=== PATIENT | female | born 1940 | race Caucasian/White ===

== ENCOUNTER → 2016-07-16 | Outpatient (CLI) | payer MEDICARE, BC ==
[~2016-07-16] MED LIST: BONIVA PO; CA C1TAB15 PO; CHOL100017 PO; CITA-50 PO; FISH1CAP59 PO; MULT-806 PO; PRAV40TA46 PO
[2016-07-16 10:59] LABS: HCT - HEMATOCRIT 46.4 % (36-46); HGB - HEMOGLOBIN 15.5 GM/DL (12-16); MEAN CORPUSCULAR HGB 29.8 UUG (26-34); MEAN CORPUSCULAR HGB CONC(MCHC 33.4 GM/DL (31-37); MEAN CORPUSCULAR VOLUME 89.2 UM3 (80-100); MEAN PLATELET VOLUME 10.1 UM3 (9.4-12.4); WBC - WHITE BLOOD COUNT 6.5 T/MM3 (4.5-11.0)
[2016-07-16 11:08] LABS: ALBUMIN 4.3 G/DL (3.5-5.0); ALBUMIN/GLOBULIN RATIO 1.5 RATIO (1.1-2.2); ALKALINE PHOSPHATASE 103 U/L (38-126); ALT (SGPT) 27 U/L (9-52); ANION GAP 8 MEQ/L (5-15); AST (SGOT) 28 U/L (14-36); BUN/CREATININE RATIO 22 RATIO (6-26); CALCIUM 9.8 MG/DL (8.4-10.2); CHLORIDE 106 MEQ/L (98-107); CO2 - CARBON DIOXIDE 28 MEQ/L (22-30); CREATININE 0.5 MG/DL (0.7-1.2); GLOMERULAR FILTRATION RATE 120; GLUCOSE 109 MG/DL (65-110); POTASSIUM 4.6 MEQ/L (3.6-5); SODIUM 142 MEQ/L (134-144); TOTAL PROTEIN 7.1 G/DL (6.3-8.2)
[2016-07-16 11:31] LABS: BAND NEUTROPHILS # 0.1 T/MM3; EOSINOPHILS # (MANUAL) 0.2 T/MM3 (0-0.5); LYMPHOCYTES # (MANUAL) 1.5 T/MM3 (1-4.8); MONOCYTES # (MANUAL) 0.4 T/MM3 (0-0.8); NEUTROPHILS #(MANUAL)-ABSOLUTE 4.4 T/MM3 (1.8-7.7); TOTAL CELLS COUNTED 100 %
== END ==
LOC: LABN 10:53
PROVIDERS: ATTEND Internal Medicine Medical Oncology
DX: C18.2 Malignant neoplasm of ascending colon (principal); C18.3 Malignant neoplasm of hepatic flexure; K52.1 Toxic gastroenteritis and colitis
CPT/HCPCS: 80053; 82378; 85007; 85027